=== PATIENT | female | born 1960 | race Hispanic/Latino ===

== ENCOUNTER → 2021-12-24 | Outpatient (CLI) | payer BC ==
[~2021-12-24] MED LIST: REGADENOSON 0.4 MG/5 ML SYR IV ONE
== END ==
LOC: NM 09:22
PROVIDERS: ATTEND Internal Medicine Cardiovascular Disease
DX: I25.10 Atherosclerotic heart disease of native coronary artery without angina pectoris (principal)
CPT/HCPCS: 78452; 93017; A9502; J2785

== ENCOUNTER → 2022-01-22 | Day surgery (SDC) | payer BC ==
[2022-01-18 10:16] LABS: BASOPHILS # (AUTO) 0.1 (0.0-0.1); BASOPHILS % 0.8 % (0.0-1.0); EOSINOPHILS # (AUTO) 0.1 (0.0-0.4); EOSINOPHILS % 1.3 % (0.0-6.0); HEMATOCRIT 39.1 % (34.2-44.1); HEMOGLOBIN 13.1 g/dL (12.0-16.0); LYMPHOCYTES # (AUTO) 2.6 (1.0-3.2); LYMPHOCYTES % 26.7 % (18.0-39.1); MEAN CORPUSCULAR HEMOGLOBIN 27.5 pg (28-32); MEAN CORPUSCULAR HGB CONC 33.5 g/dL (31-35); MEAN CORPUSCULAR VOLUME 82.1 fL (81-99); MONOCYTES # (AUTO) 0.8 (0.2-0.8); MONOCYTES % 7.9 % (4.4-11.3); NEUTROPHILS # (AUTO) 6.1 (2.1-6.9); NEUTROPHILS % 62.8 % (38.7-80.0); PLATELET COUNT 353 x10e3/uL (140-360); RED BLOOD COUNT 4.76 x10e6/uL (3.6-5.1)
[2022-01-18 10:47] LABS: ALBUMIN 3.4 g/dL (3.5-5.0); ALBUMIN/GLOBULIN RATIO 0.8 (0.8-2.0); ANION GAP 13.2 mmol/L (8-16); CALCIUM 9.4 mg/dL (8.4-10.2); CREATININE, SERUM 0.77 mg/dL (0.57-1.11); POTASSIUM 4.2 mmol/L (3.5-5.1)
[~2022-01-22] VITALS: Ht 147.3 cm; Wt 68.0 kg
[2022-01-22] VITALS (11 sets, daily range): BP systolic 104–153; BP diastolic 49–72
[~2022-01-22] MED LIST changes: +ALENDRONATE SOD70 MG; +ALPRAZOLAM 0.5 MG TAB ONE; +CALCIUM; +CELEBREX200 MG PO; +CYMBALTA30 MG; +DIPHENHYDRAMINE HCL 25 MG CAP ONE; +FAMOTIDINE20 MG PO; +FENTANYL CITRATE/PF 100MCG/2 ML INJ ONE; +GABAPENTIN300 MG PO; +HEPARIN SOD/SOD CHLORIDE 2,000 ML ONE; +HUMIRA(CF)40 MG/0.1; +HYDROXYCHLOROQ200 MG PO; +IOPAMIDOL 370 MG/ML 100 ML INFUS..BTL INJ ONE; +LOSARTAN POTASS50 MG PO; +LOSARTAN-HCTZ1 EACH; +MIDAZOLAM HCL 2 MG/2 ML VIAL ONE; +PREDNISONE10 MG PO; -REGADENOSON 0.4 MG/5 ML SYR IV ONE; +SODIUM CHLORIDE 0.9% 1000ML 1,000 ML ONE; +ULTRAM 50MG50 MG PO; +VERAPAMIL HCL 2.5 MG/ML 2 ML VIAL ONE; +VITAMIN D
== END | disposition home or self-care (01) ==
LOC: CATH LAB 07:58
PROVIDERS: ATTEND Internal Medicine Cardiovascular Disease
DX: I20.9 Angina pectoris, unspecified (principal); R00.2 Palpitations; I10 Essential (primary) hypertension; M06.9 Rheumatoid arthritis, unspecified; Z01.810 Encounter for preprocedural cardiovascular examination; Z01.812 Encounter for preprocedural laboratory examination; Z01.818 Encounter for other preprocedural examination; Z20.822 Contact with and (suspected) exposure to COVID-19; Z79.82 Long term (current) use of aspirin; Z79.899 Other long term (current) drug therapy; Z82.49 Family history of ischemic heart disease and other diseases of the circulatory system
CPT/HCPCS: 36415 ×2; 71046; 76937; 80053; 85025; 93005; 93458; C1769; C1887; J2250; J3010; J7030; Q9967; U0002; 99152